=== PATIENT | female | born 1965 | race Caucasian/White ===

== ENCOUNTER → 2017-03-02 | Day surgery (SDC) | payer OTHER ==
[~2017-03-02] MED LIST: BUPIVACAINE LIPOSOME PF 1.3% 20 ML VIAL ONE; BUPIVACAINE/EPINEPHRINE 0.5% PF 10 ML VIAL ONE; ISOSULFAN BLUE 50 MG/5 ML VIAL SQ ONE; LACTATED RINGER'S 1000 ML INJ 1,000 ML ONE; MEPERIDINE HCL 25 MG/ML VIAL ONE; MIDAZOLAM HCL 2 MG/2 ML VIAL ONE; ONDANSETRON HCL 4 MG/2 ML VIAL IV PUSH ONE; PROPOFOL 200 MG/20 ML AMP IV ONE; SODIUM CHLORIDE 0.9% INJ 10 ML ONE; ceFAZolin 2 GM PREMIX 50 ML ONE
--- NOTE | 2017-03-02 17:23 | TN ---
cc: EDGARD MCPHERSON DATE OF SURGERY: 03/02/2017. PREOPERATIVE DIAGNOSIS: Left-sided invasive lobular cancer, clinical stage I. POSTOPERATIVE DIAGNOSIS: Left-sided invasive lobular cancer, clinical stage I. OPERATIVE PROCEDURE PERFORMED: 1. Left breast lumpectomy. 2. Left axillary sentinel node biopsy. 3. Intraoperative radiation left breast. SURGEON: Edgard Mcpherson M.D. VP OF TECHNOLOGY: Medical student Mark Castro MS-3. ANESTHESIA: General and local anesthetic ESTIMATED BLOOD LOSS: Less than 25 mL. COMPLICATIONS: None. FINDINGS: Multiple reactive-appearing left axillary nodes, intraoperative consult from the diagnostic radiology showing clip in center of specimen. INDICATIONS FOR THE PROCEDURE: The patient is a 51-year-old female recently diagnosed with a T1 left invasive lobular carcinoma total clock position left breast who was referred by self-referral for consideration of radiation therapy and lumpectomy. The patient was reviewed by the breast tumor board as by consultation with Dr. Taqueria Staples from radiation oncology, and is felt to be an adequate candidate for IORT and lumpectomy for breast conservation due to the patient's strong desire for breast conservation and the patient with active lupus flare making whole breast radiation contraindicated. Risks, benefits and alternatives to this approach including a potential increased local recurrence were discussed with the patient and her and they wish to proceed with lumpectomy, sentinel lymph node biopsy and intraoperative radiation therapy. DESCRIPTION OF THE PROCEDURE IN DETAIL: The patient was taken to the operating room at [facility] and placed under anesthesia through LMA airway. The patient underwent lymph node lymphoscintigraphy as well as needle localization prior to the procedure. We prepped and draped the left breast and left axilla with ChloraPrep in sterile fashion. Time-out was performed. The sentinel lymph node biopsy was performed first. A small axillary incision approximately 3 cm below the axillary hairline was made with a 15 blade scalpel. Local anesthetic was used at this site as well as all sites prior to incision. We used Bovie electrocautery to dissect through the subcutaneous tissue and passed the clavipectoral fascia. We placed a small retractor and encountered multiple reactive-appearing lymph nodes throughout the axilla. These were all soft and appeared reactive with no concern for metastatic disease. We used the Neoprobe to identify two lymph nodes which were soft, palpable and reactive and were hot on the Neoprobe and these were excised with Bovie electrocautery without difficulty and then passed off for permanent processing. There was one lymph node that was palpable but not hot but was essentially in-between the two hot lymph nodes and was particularly large and that seemed reactive. This was also taken as well as palpable and not hot. At this point in time, we had excellent hemostasis. Background was negative in the axilla. We turned to our closure. We closed the clavipectoral fascia with a 3-0 Vicryl suture followed by 4-0 Monocryl and Dermabond on the skin. At this point in time, we turned attention to lumpectomy. We made a curvilinear incision at the area of the junction of the areola and normal skin above the left breast with a #15 blade scalpel. We used Bovie electrocautery and resected down to tissue to the area of the twelve o'clock position where the lumpectomy was performed. We had some slight amount of tunnelling and using retractors, we were able to easily gain access. We excised about three quarters of a centimeter below the skin leaving some subcutaneous tissue on the skin and dissected down with the bovie electrocautery as well as the Metzenbaum scissors. We dissected 360 degrees around the planned lumpectomy cavity as guided by the mammogram needle localization. This was marked with a stitch superior short and a stitch long lateral and passed off for permanent processing. Intraoperative radiation consultation revealed a good clip in the specimen. So we had excellent technical lumpectomy. There were some areas that were taken multiple margins that I felt were closest to the clip and one was superior, anterior and inferior. This was passed off with a stitch in the true margin for permanent processing. At this point in time, we measured the cavity and this was an ideal size for a size 4 cm probe for the [employer] IORT procedure. We did place this probe and used an ultrasound to measure and this was in all areas at least 0.7 cm or greater. With some injection of saline into the subcutaneous tissue below the skin just did increase and expand up to 9 mm. We felt this was adequate for our seed and had excellent fit. The pursestring was also placed. We placed the IORT probe onto the radiation delivery machine and placed this into the lumpectomy cavity as measured. This first thing was tied down. More saline was injected to ensure adequate skin lift. We had adequate margins on the skin as measured by a second repeat ultrasound. We placed a damp towel and the radiation shield per the manufacturers recommendations. Once we had confirmed this to be adequately positioned we were ready for treatment, left the room and the radiation was delivered. Please see the dictated documentation for the intraoperative radiation delivery. At the end of this therapy, I re-entered the room and scrubbed. We removed the radiation delivery device and the probe without difficulty. We removed the pursestring suture and inspected the cavity. There was no evidence of any bleeding, hematoma or any pathology. We turned to closure. We did close the breast tissue and subcutaneous tissue layers with a running 3-0 Vicryl suture. We closed the skin with deep dermal 4-0 Monocryl and subcuticular 4-0 Monocryl and Dermabond. Local anesthetic was again instilled into the cavity and in the area of the lumpectomy. At this point in time, the patient was discontinued from anesthesia and taken to the post-anesthesia care unit in stable condition. The patient tolerated the procedure well. No apparent complications. All counts were correct. I was present and scrubbed for the entire procedure. MD PURVI Martínez/PALOMO /4:40 PM /4:54 PM ADEOLA
== END | disposition home or self-care (01) ==
LOC: ESDC 08:21
PROVIDERS: ATTEND Surgery
DX: C50.912 Malignant neoplasm of unspecified site of left female breast (principal)
CPT/HCPCS: 00400; 01610; 19298; 19301; 38525; 38792; 77290; 77300; 77334; 77370; 77424; 88307; J0690; J2175; J2250; J2405; J3010; J7120; Q9968; 77469; C9290